=== PATIENT | female | born 1975 | race Caucasian/White ===

== ENCOUNTER 2016-08-23 11:31 | Emergency (ER) | payer OTHER ==
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
--- NOTE | 2016-08-23 13:20 | CR ---
EXAMINATION: Cervical spine HISTORY: Pain COMPARISON: None TECHNIQUE: AP and lateral views FINDINGS: The cervical spinal alignment appears normal. The vertebral body heights and disc spaces a ppear well-maintained. No fracture or dislocation. The prevertebral soft tissues are normal. Bone mi neralization is normal. IMPRESSION: Grossly unremarkable cervical spine.
[2016-08-23 13:45] VITALS: BP 168/80
== END 2016-08-23 13:38 | disposition home or self-care (01) ==
LOC: MW.ED 11:31
DX: M54.2 Cervicalgia (principal); I10 Essential (primary) hypertension; F41.0 Panic disorder [episodic paroxysmal anxiety]; F17.210 Nicotine dependence, cigarettes, uncomplicated; E66.9 Obesity, unspecified; Z68.43 Body mass index [BMI] 50.0-59.9, adult; Z79.899 Other long term (current) drug therapy; Z88.0 Allergy status to penicillin; V43.53XA Car driver injured in collision with pick-up truck in traffic accident, initial encounter
CPT/HCPCS: 72040; 72040-26; 99281; 99283

== ENCOUNTER 2019-10-15 18:58 | Emergency (ER) | payer BC ==
[2019-10-15] MEDS ORDERED: LORazepam 0.5 MG Tab PO ONE (19:24)
--- NOTE | 2019-10-15 19:28 | EDM.PDOC ---
ED HPI GENERAL MEDICAL PROBLEM - General Chief Complaint: Cardiovascular Problem Stated Complaint: HIGH BLOOD PRESSURE Time Seen by Provider: 10/15/19 19:12 - History of Present Illness INITIAL COMMENTS - FREE TEXT/NARRATIVE: History of present illness: [] Patient feels dizzy and little anxious. She feels like her blood pressure may be up. 4 days ago she stopped taking her citalopram and labetalol because she ran out. She restarted today. Restarting did not immediately help her symptoms. She does not have any cough fever sweats or headache. Review of systems: As per history of present illness and below otherwise all systems reviewed and negative. Past medical history: As per history of present illness and as reviewed below otherwise noncontributory. Surgical history: As per history of present illness and as reviewed below otherwise noncontributory. Social history: No reported history of drug or alcohol abuse. Family history: As per history of present illness and as reviewed below otherwise noncontrib utory. Physical exam: Constitutional - well developed, well-nourished and in no acute distress HEENT - normocephalic, no evidence of trauma - external nose and mouth normal - no mass in neck and no JVD - mucosae moist EYES - full EOM, PERRL, no icterus - no evidence of inflammation, injection, or drainage Respiratory - no respiratory distress, equal bilateral expansion, lungs clear to auscultation and no abnormal lung sounds Cardiovascular - Regular Rhythm with S1 and S2 appreciated and no murmur, gallop or rub. Peripheral pulses symmetrically normal in all four extremities GI - abdomen soft without distension or organomegaly - normal bowel sounds - no guard or rebound Musculoskeletal no gross deformity of long bones or joints - no tenderness, swelling or edema Neurologic - Alert and oriented times four - CN II-XII grossly intact - motor sensory and coordination symmetrically normal. My customary basic neurologic exam is normal including Romberg test and gait. Psychiatric - appropriate mood and affect with normal thought content Hematologic - No petechiae or purpura - mucosa appropriate color and sclera not pale - normal nail bed color and refill Integument - no rash or evidence of trauma - normal turgor Diagnostics: [] Therapeutics: [] Impression: [] Plan: [] Definitive disposition and diagnosis as appropriate pending reevaluation and review of above. 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: Psychiatric History: Reports: Anxiety, Depression, Panic Attack Endocrine/Metabolic History: Reports: Obesity/BMI 30+ - Infectious Disease History Infectious Disease History: Reports: Chicken Pox - Past Surgical History Female Surgical History: Reports: Section Social & Family History - Family History Family Medical History: Noncontributory - Tobacco Use Smoking Status *Q: Current Every Day Smoker Years of Tobacco use: 29 Packs/Tins Daily: 0.5 - Caffeine Use Caffeine Use: Reports: Coffee - Recreational Drug Use Recreational Drug Use: No ED ROS GENERAL - Review of Systems Review Of Systems: Comprehensive ROS is negative, except as noted in HPI. ED EXAM, GENERAL - Physical Exam Exam: See Below Free Text/Narrative:: My physical exam as in the HPI Course - Vital Signs Last Recorded V/S: Last Vital Signs Temp 97 F 10/15/19 19:10 Pulse 84 10/15/19 19:45 Resp 17 10/15/19 19:45 BP 123/77 10/15/19 19:45 Pulse Ox 96 10/15/19 19:45 - Orders/Labs/Meds Labs: Laboratory Tests 10/15/19 10/15/19 Range/Units 19:50 19:50 WBC 13.54 H (4.0-11.0) K/uL RBC 5.63 (4.30-5.90) M/uL Hgb 14.4 (12.0-16.0) g/dL Hct 45.3 (36.0-46.0) % MCV 80.5 (80.0-98.0) fL MCH 25.6 L (27.0-32.0) pg MCHC 31.8 (31.0-37.0) g/dL RDW Std Deviation 45.6 (28.0-62.0) fl RDW Coeff of Jimmy 16 H (11.0-15.0) % Plt Count 320 (150-400) K/uL MPV 11.50 (7.40-12.00) fL Neut % (Auto) 63.2 (48.0-80.0) % Lymph % (Auto) 28.0 (16.0-40.0) % Mingo % (Auto) 6.2 (0.0-15.0) % Eos % (Auto) 2.2 (0.0-7.0) % Baso % (Auto) 0.4 (0.0-1.5) % Neut # (Auto) 8.6 H (1.4-5.7) K/uL Lymph # (Auto) 3.8 H (0.6-2.4) K/uL Mingo # (Auto) 0.8 (0.0-0.8) K/uL Eos # (Auto) 0.3 (0.0-0.7) K/uL Baso # (Auto) 0.1 (0.0-0.1) K/uL Nucleated RBC % 0.0 /100WBC Nucleated RBCs # 0 K/uL Sodium 137 (136-145) mmol/L Potassium 3.6 (3.5-5.1) mmol/L Chloride 99 (98-107) mmol/L Carbon Dioxide 25.2 (21.0-32.0) mmol/L BUN 11 (7.0-18.0) mg/dL Creatinine 1.1 H (0.6-1.0) mg/dL Est Cr Clr Drug Dosing 52.16 mL/min Estimated GFR (MDRD) 54.2 ml/min Glucose 104 (74-106) mg/dL Calcium 8.8 (8.5-10.1) mg/dL Total Bilirubin 0.3 (0.2-1.0) mg/dL AST 19 (15-37) IU/L ALT 32 (14-63) IU/L Alkaline Phosphatase 97 (46-116) U/L Total Protein 7.5 (6.4-8.2) g/dL Albumin 4.1 (3.4-5.0) g/dL Globulin 3.4 (2.6-4.0) g/dL Albumin/Globulin Ratio 1.2 (0.9-1.6) Meds: Medications Discontinued Medications Generic Name Dose Route Start Last Admin Trade Name Verenice PRN Reason Stop Dose Admin Lorazepam 0.5 mg 10/15/19 19:24 10/15/19 19:29 Ativan PO 10/15/19 19:25 0.5 mg ONETIME ONE Administration Departure - Departure Time of Disposition: 20:39 Disposition: Home, Self-Care 01 Condition: Good Clinical Impression: SSRI (selective serotonin reuptake inhibitor) causing adverse effect in therapeutic use, Withdrawal complaint Referrals: Dulce Maria Mann NP [Primary Care Provider] - Forms: ED Department Discharge Additional Instructions: The following information is given to patients seen in the emergency department who are being discharged to home. This information is to outline your options for follow-up care. We provide all patients seen in our emergency department with a follow-up referral. The need for follow-up, as well as the timing and circumstances, are variable depending upon the specifics of your emergency department visit. If you don't have a primary care physician on staff, we will provide you with a referral. We always advise you to contact your personal physician following an emergency department visit to inform them of the circumstance of the visit and for follow-up with them and/or the need for any referrals to a consulting specialist. The emergency department will also refer you to a specialist when appropriate. This referral assures that you have the opportunity for follow-up care with a specialist. All of these measure are taken in an effort to provide you with optimal care, which includes your follow-up. Under all circumstances we always encourage you to contact your private physician who remains a resource for coordinating your care. When calling for follow-up care, please make the office aware that this follow-up is from your recent emergency room visit. If for any reason you are refused follow-up, please contact the [facility] Emergency Department at and asked to speak to the emergency department charge nurse. Kenneth Vaughn [facility] - Primary Care [address] [place] [id number] [facility] [address] [place] [id number] Sepsis Event Note (ED) - Evaluation Sepsis Screening Result: No Definite Risk - Focused Exam Vital Signs: Vital Signs Temp Pulse Resp BP Pulse Ox 10/15/19 19:45 84 17 123/77 96 10/15/19 19:10 97 F 86 16 145/81 H 97
[2019-10-15 20:27] LABS: CARBON DIOXIDE,CO2 25.2 mmol/L (21.0-32.0); POTASSIUM,K 3.6 mmol/L (3.5-5.1)
[2019-10-15 22:41] VITALS: BP 126/81; PULSE 81
== END 2019-10-15 20:45 | disposition home or self-care (01) ==
LOC: MW.ED 18:58
DX: R42 Dizziness and giddiness (principal); T43.215A Adverse effect of selective serotonin and norepinephrine reuptake inhibitors, initial encounter; F17.210 Nicotine dependence, cigarettes, uncomplicated; F41.9 Anxiety disorder, unspecified; F32.9 Major depressive disorder, single episode, unspecified; E66.9 Obesity, unspecified; Z68.43 Body mass index [BMI] 50.0-59.9, adult; Z88.0 Allergy status to penicillin; Z79.899 Other long term (current) drug therapy
CPT/HCPCS: 36415; 80053; 85025; 99284; A9270

== ENCOUNTER 2024-10-18 12:54 | Emergency (ER) | payer BC ==
[2024-10-18 13:39] VITALS: BP 114/57; PULSE 80
== END 2024-10-18 15:26 | disposition home or self-care (01) ==
LOC: MW.ED 12:54
DX: Z48.02 Encounter for removal of sutures (principal); I10 Essential (primary) hypertension; F17.210 Nicotine dependence, cigarettes, uncomplicated; Z88.0 Allergy status to penicillin; Z79.899 Other long term (current) drug therapy
CPT/HCPCS: 99282